=== PATIENT | female | born 1950 | race American Indian/Alaskan Native ===

== ENCOUNTER 2021-03-17 13:45 | Emergency (ER) | payer MEDICARE ==
[2021-03-17] MEDS ORDERED: cloNIDine 0.2 MG TAB PO ONE (14:51)
[2021-03-17] MEDS ORDERED: ACETAMINOPHEN 325 MG TAB PO ONE (14:52)
--- NOTE | 2021-03-17 14:56 | Emergency Department Report ---
ED General Adult HPI - General Chief complaint: High BP Stated complaint: SI Source: patient Mode of arrival: Ambulatory Limitations: No Limitations - History of Present Illness Initial comments: The patient was evaluated in the emergency department for symptoms described in the history of present illness. He/she was evaluated in the context of the global COVID-19 pandemic, which necessitated consideration that the patient might be at risk for infection with the virus that causes COVID-19. Institutional protocols and algorithms that pertain to the evaluation of patients at risk for COVID-19 are in a state of rapid change based on information released by regulatory bodies including the CDC and federal and state organizations. These policies and algorithms were followed during the patient's care in the emergency department. Please note that these policies, procedures and recommendations changed on a rapid basis. 70-year-old -[place] Citizen female presents to the emergency room complaining of headache blood pressure elevated as had suicidal ideation. She is brought in with her daughter daughter reports that she has been saying that she does not feel like she wants to be here anymore. When asked patient she says she just has thoughts of being depressed as she has lost her sister. Patient is relocated from [place] about a year here and has not established provider. It was noted that patient's blood pressure was 204/99 pulse is 67 respirations 1800% on oxygen with no fever. Patient's not sure what blood pressure medication she is taking and is calling her daughter to find out. - Related Data Allergies Allergy/AdvReac Type Severity Reaction Status Date / Time No Known Allergies Allergy Verified 03/17/21 14:21 ED Review of Systems ROS: Stated complaint: SI Other details as noted in HPI Comment: All other systems reviewed and negative ED Past Medical Hx - Past Medical History Hx Hypertension: Yes - Social History Smoking Status: Never Smoker Substance Use Type: Alcohol ED Physical Exam - General Limitations: No Limitations General appearance: alert, in no apparent distress - Head Head exam: Present: atraumatic, normocephalic - Eye Eye exam: Present: normal appearance - ENT ENT exam: Present: mucous membranes moist - Neck Neck exam: Present: normal inspection - Respiratory Respiratory exam: Present: normal lung sounds bilaterally. Absent: respiratory distress - Cardiovascular Cardiovascular Exam: Present: regular rate, normal rhythm. Absent: systolic murmur, diastolic murmur, rubs, gallop - GI/Abdominal GI/Abdominal exam: Present: soft, normal bowel sounds - Extremities Exam Extremities exam: Present: normal inspection - Back Exam Back exam: Present: normal inspection - Neurological Exam Neurological exam: Present: alert, oriented X3 - Psychiatric Psychiatric exam: Present: normal affect, normal mood - Skin Skin exam: Present: warm, dry, intact, normal color. Absent: rash ED Course Vital Signs 03/17/21 14:11 Temperature 97.9 F Pulse Rate 60 Respiratory 18 Rate Blood Pressure 204/99 O2 Sat by Pulse 100 Oximetry ED Medical Decision Making - Medical Decision Making 70-year-old -[place] Citizen female presents to the emergency room complaining of headache blood pressure elevated as had suicidal ideation. She is brought in with her daughter daughter reports that she has been saying that she does not feel like she wants to be here anymore. When asked patient she says she just has thoughts of being depressed as she has lost her sister. Patient is relocated from [place] about a year here and has not established provider. It was noted that patient's blood pressure was 204/99 pulse is 67 respirations 1800% on oxygen with no fever. Patient's not sure what blood pressure medication she is taking and is calling her daughter to find out. CBC CMP urinalysis has been ordered. Clonidine 0.2 mg have been ordered. Critical care attestation.: If time is entered above; I have spent that time in minutes in the direct care of this critically ill patient, excluding procedure time. ED Disposition Condition: Stable
[2021-03-17 15:28] LABS: Basophils # (Auto) 0.1 K/mm3 (0.0-0.1); Basophils % (Auto) 0.9 % (0.0-1.8); Eosinophils # (Auto) 0.1 K/mm3 (0.0-0.4); Eosinophils % (Auto) 0.9 % (0.0-4.3); Hematocrit 34.8 % (30.3-42.9); Lymphocytes # (Auto) 1.6 K/mm3 (1.2-5.4); Mean Corpuscular HGB Conc 32 % (30-34); Mean Corpuscular Volume 71 fl (79-97); Monocytes # (Auto) 0.6 K/mm3 (0.0-0.8); Monocytes % (Auto) 10.9 % (0.0-7.3); Platelet Count 197 K/mm3 (140-440); Red Blood Count 4.91 M/mm3 (3.65-5.03); Red Cell Distribution Width 16.7 % (13.2-15.2)
[2021-03-17 15:43] LABS: Albumin 4.3 g/dL (3.9-5); Calcium 9.5 mg/dL (8.4-10.2)
[2021-03-17 17:41] LABS: Bilirubin,Urine NEG (Negative); Blood,Urine NEG (Negative); Color,Urine Yellow (Yellow); Mucus,Urine FEW /HPF; RBC,Urine < 1.0 /HPF (0.0-6.0); Urobilinogen,Urine < 2.0 mg/dL (<2.0); WBC,Urine < 1.0 /HPF (0.0-6.0)
[2021-03-18 02:50] VITALS: BP 121/70
[2021-03-18] MEDS ORDERED: IBUPROFEN 600 MG TAB PO ONE (04:37)
[2021-03-18 06:31] LABS: Amphetamine Screen,Urine Negative; Benzodiazepines Screen,Urine Negative; Cannabinoid Screen,Urine Negative; Cocaine Screen,Urine Negative; Methadone Screen,Urine Negative; Opiate Screen,Urine Negative
--- NOTE | 2021-03-18 12:23 | Consultation ---
History of Present Illness - Reason for Consult Consult date: 03/18/21 Reason for consult: suicidal ideation - History of Present Psychiatric Illness ED Note: 70-year-old -[place] female presents to the emergency room complaining of headache blood pressure elevated as had suicidal ideation. She is brought in with her daughter daughter reports that she has been saying that she does not feel like she wants to be here anymore. When asked patient she says she just has thoughts of being depressed as she has lost her sister. Patient is relocated from [place] about a year here and has not established provider. It was noted that patient's blood pressure was 204/99 pulse is 67 respirations 1800% on oxygen with no fever. Patient's not sure what blood pressure medication she is taking and is calling her daughter to find out. Christelle Miller is a 70 year old female with no prior psychiatric history who presents to the ED with suicidal ideation. In my interview with the patient, she reports being depressed. She reports that she has been thinking about her family members that passed. The patient denies any current suicidal/homicidal ideation and denies hallucinations. The patient is not receptive to psychotropic medications at this time but states she would prefer therapy. PAST PSYCHIATRIC HISTORY Diagnoses:Denies Suicide attempts or Self-harm behavior: None reported Prior psychiatric hospitalizations: Denies Substance Abuse history: Denies Previous psychiatric medications tried: Denies Outpatient treatment: Denies PAST MEDICAL HISTORY: Family Psychiatric History: None reported or documented SOCIAL HISTORY Marital Status: Single Living Arrangements: lives with daughter Employment Status: retired Access to guns/weapons: None reported Education: 12th grade History of Abuse: None reported Legal History: unknown REVIEW OF SYSTEMS Constitutional: Negative for weight loss ENT: Negative for stridor Respiratory: Negative for cough or hemoptysis All other systems reviewed and are negative MENTAL STATUS EXAMINATION General Appearance and Behavior: Age appropriate, good hygiene, wearing appropriate clothes, good eye contact, cooperative with questioning Cooperation: Participating/engaged Psychomotor Behavior: abnormal Mood:"depressed" Affect and affective range: congruent with mood Thought Process:goal directed Thought Content: Not suicidal Speech: Normal volume, Regular rate and rhythm. Intellectual Functioning: Average Suicidal Ideation: Denies Homicidal Ideation: Denies Hallucinations: Denies Delusions: None elicited Impulse Control: Limited Insight and Judgment: limited insight and poor judgment Memory: Normal Attention: Normal Orientation: Alert, oriented. Assessment and Plan (1) Major depressive disorder (2) Current Visit: No Status: Acute RECOMMENDATIONS Risks, benefits and alternatives of medications discussed with the patient, questions answered and consent obtained from patient. PSYCHOTHERAPY: Supportive psychotherapy provided MEDICAL: Per primary team DELIRIUM PRECAUTIONS: Please re-orient patient frequently, keep lights on during the day, and minimize benzodiazepines and opiates as these medications could worsen patient's confusion. POULTRY BARN MANAGER: non indicated DISPOSITION: Do not recommend acute inpatient psychiatric hospitalization at this time. Despatch Clerk will provide patient with outpatient resources. Case discussed with Dr. Babcock. FOLLOW-UP: Will sign off. Thank you for the consult. Please contact with any questions and/or concerns. Mental Status Exam Medications and Allergies Allergies Allergy/AdvReac Type Severity Reaction Status Date / Time No Known Allergies Allergy Verified 03/17/21 14:21 Mental Status Exam - Vital signs Last Vital Signs Temp 97.9 F 03/17/21 14:11 Pulse 58 L 03/17/21 17:15 Resp 14 03/17/21 17:15 BP 121/70 03/17/21 17:15 Pulse Ox 100 03/17/21 17:15 Results Result Diagrams: 03/17/21 15:08 03/17/21 15:08 Abnormal lab results 03/17/21 03/17/21 03/18/21 Range/Units 15:08 15:08 04:47 MCV 71 L (79-97) fl MCH 23 L (28-32) pg RDW 16.7 H (13.2-15.2) % Whitley % (Auto) 10.9 H (0.0-7.3) % BUN 24 H (7-17) mg/dL Creatinine 1.3 H (0.6-1.2) mg/dL Salicylates < 0.3 L (2.8-20.0) mg/dL Acetaminophen (10.0-30.0) ug/mL 03/18/21 Range/Units 04:47 MCV (79-97) fl MCH (28-32) pg RDW (13.2-15.2) % Whitley % (Auto) (0.0-7.3) % BUN (7-17) mg/dL Creatinine (0.6-1.2) mg/dL Salicylates (2.8-20.0) mg/dL Acetaminophen 5.0 L (10.0-30.0) ug/mL All other labs normal.
== END 2021-03-18 15:51 ==
LOC: ED 13:45
DX: I10 Essential (primary) hypertension (principal); R45.851 Suicidal ideations; Z20.822 Contact with and (suspected) exposure to COVID-19
CPT/HCPCS: 36415; 80053; 80307; 81001; 85025; 99283; U0003; 80320; G0480

== ENCOUNTER 2021-06-30 13:16 | Emergency (ER) | payer MEDICARE ==
[2021-06-30 13:57] VITALS: BP 107/56
== END 2021-07-01 02:08 | disposition left against medical advice (07) ==
LOC: ED 13:16
DX: I10 Essential (primary) hypertension (principal); Z53.21 Procedure and treatment not carried out due to patient leaving prior to being seen by health care provider